=== PATIENT | male | born 1940 | race Caucasian/White ===

== ENCOUNTER 2017-03-13 07:58 | Emergency (ER) | payer MEDICARE ==
[2017-03-13 08:15] VITALS: BP 152/63
[2017-03-13] MEDS ORDERED: PANTOPRAZOLE SODIUM INJ. 40 MG VIAL ONE (08:47)
[2017-03-13] MEDS ORDERED: 0.9 % SODIUM CHLORIDE 100 ML IV ONE (08:48)
[2017-03-13 08:53] LABS: BASOPHILS % 0.2 (0.0-1.5); EOSINOPHILS % 0.4 % (0.0-6.8); MEAN CORPUSCULAR HEMOGLOBIN 30.5 pg (28.0-34.0); MEAN CORPUSCULAR VOLUME 95.6 fl (80.0-100.0); MONOCYTES % 2.6 % (0.0-11.0); NEUTROPHILS # 10.5 # k/uL (1.4-7.7)
[2017-03-13] MEDS ORDERED: PANTOPRAZOLE SODIUM 40 MG in 0.9 % SODIUM CHLORIDE 50 ML IV SCH (09:00)
[2017-03-13 09:04] LABS: eGFR (African) > 60; eGFR (Non-African) > 60
--- NOTE | 2017-03-13 09:11 | ED Physician Documentation ---
General Adult - HISTORIAN Historian: patient - HPI Stated Complaint: Abdominal Pain X 2 Years Chief Complaint: Abdominal Pain Onset: hours Timing: still present Severity: moderate Further Comments: yes (Pt is a 76 yo male with abd pain that he has had intermittently for 2 years. Pain is worse than usual this am. On initial examination pt has obvious, large, inguinal hernia that he has evidently been ignoring for some time. Pt states that he has been having normal BM's. Pt is a [employer] and appears eccentric. Pt states his other medical problems include severe arthritis, HTN, and DMII on oral meds.) - ROS CONST: no problems EYES/ENT: none CVS/RESP: none GI/: abdominal pain MS/SKIN/LYMPH: other (generalized arthritis pain) - PAST HX Past History: other (abd pain, arthritis, HTN, DMII on oral meds.) Allergies/Adverse Reactions: Allergies Allergy/AdvReac Type Severity Reaction Status Date / Time No Known Drug Allergies Allergy Verified 03/13/17 10:03 - SOCIAL HX Smoking History: non-smoker - FAMILY HX Family History: No - VITAL SIGNS Vital Signs: Vital Signs Temp Pulse Resp BP Pulse Ox 97.8 F 55 L 18 152/63 99 03/13/17 07:58 03/13/17 07:58 03/13/17 07:58 03/13/17 07:58 03/13/17 07:58 - REVIEWED ASSESSMENTS Nursing Assessment Reviewed: Yes Vitals Reviewed: Yes Progress - Progress Progress: Protonix 40 mg IV U/S scrotum: The right testicle measures 4.7 x by 2.5 x 3.7 cm. The left testicle measures 5.4 x 2.6 x 3.0 cm. The testicular parenchyma echogenicity and echotexture is normal. No testicular mass is identified. Blood flow is present within both testicles and is symmetric. The epididymis are symmetric in size with small right epididymal head cyst noted. No evidence of epididymitis. Right hydrocele is present with right inguinal hernia with bowel loops extending into the right scrotum. Transfer to [facility]. Dr. Peterson for eval for inguinal hernia repair. - EKG/XRAY/CT EKG: rhythm (sinus bradycardia, HR=45) ED Results Lab/Radiology - Lab Results Lab Results: Lab Results 03/13/17 03/13/17 03/13/17 08:45 08:45 08:45 WBC 12.20 K/ul H K/ul (4.00-12.00) RBC 4.48 M/ul M/ul (3.90-5.20) Hgb 13.7 g/dL g/dL (12.0-18.0) Hct 42.9 % % (37.0-53.0) MCV 95.6 fl fl (80.0-100.0) MCH 30.5 pg pg (28.0-34.0) MCHC 31.9 g/dL g/dL (30.0-36.0) RDW 13.5 % % (11.3-14.3) Plt Count 254 K/mm3 K/mm3 (130-400) Neut % (Auto) 86.3 % H % (39.0-79.0) Lymph % (Auto) 9.6 % L % (16.0-50.0) [place] % (Auto) 2.6 % % (0.0-11.0) Eos % (Auto) 0.4 % % (0.0-6.8) Baso % (Auto) 0.2 (0.0-1.5) Neut # 10.5 # k/uL H # k/uL (1.4-7.7) Lymph # 1.2 # k/uL # k/uL (0.6-4.0) [place] # 0.3 # k/uL # k/uL (0.0-0.9) Eos # 0.0 # k/uL # k/uL (0.0-0.6) Baso # 0.0 # k/uL # k/uL (0.0-0.5) Reactive Lymphs % 0.9 % % (0.0-5.0) Reactive Lymphs # 0.1 # k/uL # k/uL (0.0-0.8) Sodium 142 mmol/L mmol/L (136-145) Potassium 3.8 mmol/L mmol/L (3.5-5.0) Chloride 104 mmol/L mmol/L (98-110) Carbon Dioxide 28 mmol/L mmol/L (20-32) BUN 16 mg/dL mg/dL (10-26) Creatinine 1.1 mg/dL mg/dL (0.4-1.5) Estimated Creat Clear 67 Est GFR ( Amer) > 60 (60 - ) Est GFR (Non-Af Amer) > 60 (60 - ) Glucose 255 mg/dL H mg/dL (70-99) Calcium 9.4 mg/dL mg/dL (8.5-10.5) Total Bilirubin 0.5 mg/dL mg/dL (0.2-1.2) AST 19 U/L U/L (0-41) ALT 13 U/L U/L (0-45) Alkaline Phosphatase 90 U/L U/L (46-116) Creatine Kinase 75 U/L U/L (0-225) CK-MB (CK-2) Pending Troponin I < 0.03 ng/mL L ng/mL (0.03-0.06) Total Protein 6.8 g/dL g/dL (6.0-8.5) Albumin 4.1 g/dL g/dL (3.0-5.5) Amylase 58 U/L U/L (20-104) - Orders Orders: ED Orders Category Date Time Status BILAT SCROTAL ULTRASOUND [US SCROTUM & CONTENTS] [US] Exams 03/13/17 Ordered Stat AMYLASE Routine Lab 03/13/17 08:45 Completed CBC/PLATELET/DIFF Routine Lab 03/13/17 08:45 Completed CKMB Stat Lab 03/13/17 08:45 Results CMP Routine Lab 03/13/17 08:45 Completed CREATINE KINASE Routine Lab 03/13/17 08:45 Completed LACTIC ACID Stat Lab 03/13/17 Ordered TROPONIN I (cTnI) Stat Lab 03/13/17 08:45 Results 0.9 % Sodium Chloride [Sodium Chloride] 100 ml Med 03/13/17 08:48 Discontinued IV .STK-MED Pantoprazole Sodium [Protonix] Med 03/13/17 08:47 Discontinued 40 mg .ROUTE .STK-MED ONE Pantoprazole Sodium [Protonix] 40 mg Med 03/13/17 09:00 Ordered 0.9 % Sodium Chloride [Sodium Chloride] 50 ml IV DAILY General Adult Physical Exam - PHYSICAL EXAM GENERAL APPEARANCE: mild distress EENT: eye inspection normal, pharynx normal NECK: normal inspection, supple RESPIRATORY: no resp distress, chest non-tender, breath sounds normal CVS: reg rate & rhythm, heart sounds normal ABDOMEN: soft, tenderness (lower abd tenderness, scrotal swelling c/w hernia), decreased BS BACK: normal inspection, no CVA tenderness SKIN: warm/dry, normal color EXTREMITIES: non-tender, normal range of motion NEURO: oriented X3, motor nml, sensation nml Discharge Clincal Impression: R inguinal hernia Abdominal pain Qualifiers: Abdominal location: lower abdomen, unspecified Qualified Code(s): R10.30 - Lower abdominal pain, unspecified Referrals: Shelly Abad PRN [Primary Care Provider] - Condition: Stable Disposition: XFER [id number] HOSP Decision to Admit: NO Decision Time: 10:37
[2017-03-13 13:41] LABS: APPEARANCE,URINE CLEAR (CLEAR); COLOR,URINE AMBER (YELLOW); OCCULT BLOOD,URINE 1+ (NEGATIVE); PH URINE 5.5 (5.0 - 8.0); UROBILINOGEN URINE 0.2 Eu (0.2-1.0)
--- NOTE | 2017-03-13 14:13 | Diagnostic Imaging Report ---
[facility] [id number] [facility].[address] [id number] Report Submission Date: Mar 13, 2017 9:47:39 AM CDT Patient Study Name: ESTRELLA FINNEY Date: Mar 13, 2017 8:59:00 AM CDT Modality Type: US Gender: M Description: US SCROTUM & CONTENTS : 36 Institution: [facility] Physician RIK HARDIN - ER EXAMINATION: Testicular sonogram. HISTORY: PT right groin pain FINDINGS: The right testicle measures 4.7 x by 2.5 x 3.7 cm. The left testicle measures 5.4 x 2.6 x 3.0 cm. The testicular parenchyma echogenicity and echotexture is normal. No testicular mass is identified. Blood flow is present within both testicles and is symmetric. The epididymis are symmetric in size with small right epididymal head cyst noted. No evidence of epididymitis. Right hydrocele is present with right inguinal hernia with bowel loops extending into the right scrotum. IMPRESSION: 1. No evidence of testicular torsion, orchitis, or epididymitis. 2. Right hydrocele. 3. Small bowel containing right inguinal hernia present. Electronically signed on Mar 13, 2017 9:47:39 AM CDT by: Cesar WEI
== END 2017-03-13 10:50 | disposition left against medical advice (07) ==
LOC: ED 07:58
DX: K40.90 Unilateral inguinal hernia, without obstruction or gangrene, not specified as recurrent (principal)
CPT/HCPCS: 36415; 76870; 80053; 81002; 82150; 82550; 82553; 84484; 85025; 96361; 96365; 99283; 99284